=== PATIENT | female | born 1940 | race Caucasian/White ===

== ENCOUNTER 2020-10-24 07:41 | Outpatient (CLI) | payer MEDICARE, BC | END 2020-10-24 07:42 | disposition home or self-care (01) | LOC: NM 07:41 | PROVIDERS: ATTEND Orthopaedic Surgery Adult Reconstructive Orthopaedic Surgery | DX: T84.84XA Pain due to internal orthopedic prosthetic devices, implants and grafts, initial encounter (principal); Z96.641 Presence of right artificial hip joint | CPT/HCPCS: 78315; A9503 ==